=== PATIENT | male | born 1990 | race Caucasian/White ===

== ENCOUNTER 2017-12-04 13:21 | Emergency (ER) | payer SELFPAY ==
--- NOTE | 2017-12-04 15:38 | ED Physician Documentation ---
PD HPI URI - Stated complaint Stated Complaint: SINUS PRESSURE - Chief complaint Chief Complaint: Heent - History obtained from History obtained from: Patient - History of Present Illness Timing - onset: How many weeks ago (has had congestion and sinus drainage for couple weeks, and now with green thicker drainage, sore throat, ear pain, and some cough.) Timing duration: Weeks Timing details: Gradual onset, Still present (worse the past few days) Associated symptoms: Chills, Ear pain, Nasal congestion, Sinus pain, Sore throat , Productive cough. No: Dyspnea, NVD Contributing factors: No: Sick contact, Travel, Immunocompromised, COPD / asthma Similar symptoms before: Has not had sx before Recently seen: Not recently seen Review of Systems Constitutional: reports: Chills, Myalgias. denies: Fever Ears: reports: Ear pain (left) Nose: reports: Rhinorrhea / runny nose, Congestion, Sinus pressure / pain Throat: reports: Sore throat. denies: Oral lesions / sores, Swollen tonsils Respiratory: reports: Cough. denies: Dyspnea, Wheezing GI: denies: Nausea, Vomiting, Diarrhea Skin: denies: Rash, Lesions PD PAST MEDICAL HISTORY - Past Medical History Past Medical History: No - Past Surgical History Past Surgical History: No - Present Medications Home Medications: Ambulatory Orders Medication Instructions Recorded Confirmed Albuterol Sulf [Ventolin Hfa 2 - 3 puffs INH Q4HR PRN #1 inhaler 12/04/17 Inhaler] Benzonatate [Tessalon] 100 mg PO TID PRN #25 capsule 12/04/17 Dexamethasone [Decadron] 4 mg PO DAILY #5 tablet 12/04/17 Doxycycline Monohydrate 100 mg PO BID #14 tablet 12/04/17 guaiFENesin/CODEINE [Robitussin AC] 10 ml PO Q6H PRN #240 ml 12/04/17 - Allergies Allergies/Adverse Reactions: Allergies Allergy/AdvReac Type Severity Reaction Status Date / Time No Known Drug Allergies Allergy Verified 12/04/17 13:32 - Social History Does the pt smoke?: No Smoking Status: Never smoker Does the pt drink ETOH?: No Does the pt have substance abuse?: No - Immunizations Immunizations are current?: Yes - POLST Patient has POLST: No PD ED PE NORMAL - Vitals Vital signs reviewed: Yes - General General: Alert and oriented X 3, No acute distress, Well developed/nourished - HEENT HEENT: Ears normal, Moist mucous membranes, Pharynx benign - Neck Neck: Supple, no meningeal sign, No adenopathy - Cardiac Cardiac: RRR, No murmur - Respiratory Respiratory: Clear bilaterally - Derm Derm: Normal color, Warm and dry - Neuro Neuro: Alert and oriented X 3, No motor deficit, Normal speech Results - Vitals Vitals: Oxygen O2 Source Room air PD MEDICAL DECISION MAKING - ED course Complexity details: considered differential, d/w patient - Sepsis Event Vital Signs: Oxygen O2 Source Room air Departure - Departure Disposition: Home, Self Care Clinical Impression: Bronchitis Sinusitis, acute Qualifiers: Sinusitis location: maxillary Recurrence: non-recurrent Qualified Code(s): J01.00 - Acute maxillary sinusitis, unspecified Condition: Stable Record reviewed to determine appropriate education?: Yes Instructions: ED Sinusitis Abx Tx Prescriptions: Albuterol Sulf [Ventolin Hfa Inhaler] 2 - 3 puffs INH Q4HR PRN #1 inhaler PRN Reason: Shortness Of Air/Wheezing Benzonatate [Tessalon] 100 mg PO TID PRN #25 capsule PRN Reason: Cough Dexamethasone [Decadron] 4 mg PO DAILY #5 tablet Doxycycline Monohydrate 100 mg PO BID #14 tablet guaiFENesin/CODEINE [Robitussin AC] 10 ml PO Q6H PRN #240 ml PRN Reason: Cough Comments: Drink lots of fluids. For the sinuses, use doxycycline twice daily for a week for the infection. Also Decadron steroid anti-inflammatory daily for 5 more days. For the cough you can use albuterol inhaler 2 puffs 4 times a day for the next 7 -10 days and extra times if needed for wheezing and cough. Add Tessalon for cough as needed and also the cough medicine. Recheck if not improving over the next several days to week. Discharge Date/Time: 12/04/17 16:35
[2017-12-04] MEDS ORDERED: DEXAMETHASONE 10 MG/ML VIAL PO STA (15:57)
[2017-12-04] MEDS ORDERED: DOXYCYCLINE 100 MG TABLET PO STA (15:57)
[2017-12-04] MEDS ORDERED: ALBUTEROL NEB 2.5 MG/3 ML INH STA (15:57)
[2017-12-04 16:35] VITALS: BP 166/86
== END 2017-12-04 16:35 | disposition home or self-care (01) ==
LOC: ED 13:21
DX: J40 Bronchitis, not specified as acute or chronic (principal); J01.00 Acute maxillary sinusitis, unspecified
CPT/HCPCS: 94640; 94664; 99283; A9270